=== PATIENT | male | born 1950 | race Caucasian/White ===

== ENCOUNTER 2017-03-23 04:27 | Inpatient (IN) | payer OTHER, MEDICARE ==
[~2017-03-23] VITALS: Ht 180 cm; Wt 134.7 kg
[2017-03-23 05:30] VITALS: BP 162/82
[2017-03-23] MEDS ORDERED: ALBUTEROL2.5 MG/31 INH (05:50)
[2017-03-23] MEDS ORDERED: AMIODARONE HCL100 MG PO (05:51)
[2017-03-23] MEDS ORDERED: TUMS PO (05:51)
[2017-03-23] MEDS ORDERED: LEXAPRO20 MG PO (05:52)
[2017-03-23] MEDS ORDERED: IRON325 PO (05:53)
[2017-03-23] MEDS ORDERED: GABAPENTIN 100100 MG (05:54)
[2017-03-23] MEDS ORDERED: NOVOLOG100 UNIT/1 (05:55)
[2017-03-23] MEDS ORDERED: LANTUS100 UNIT/M (05:56)
[2017-03-23] MEDS ORDERED: LACTULOSE20 GM/30 M (05:57)
[2017-03-23] MEDS ORDERED: LAMICTAL (GREE1 EACH (05:58)
[2017-03-23] MEDS ORDERED: LISINOPRIL20 MG (05:58)
[2017-03-23] MEDS ORDERED: ATIVAN0.5 MG (05:59)
[2017-03-23] MEDS ORDERED: MILK OF MA2400 MG/10 (06:00)
[2017-03-23] MEDS ORDERED: ZYPREXA5 MG (06:01)
[2017-03-23] MEDS ORDERED: PRILOSEC 20 MG20 MG (06:02)
[2017-03-23] MEDS ORDERED: OXCARBAZEPINE150 MG (06:05)
[2017-03-23] MEDS ORDERED: OXYBUTYNIN 5 MG5 M2 PO (06:05)
[2017-03-23] MEDS ORDERED: PRAZOSIN 1 MG CA1 M1 PO (06:06)
[2017-03-23] MEDS ORDERED: MIRALAX17 GM PO (06:06)
[2017-03-23] MEDS ORDERED: UBIQUINOL100 MG PO (06:07)
[2017-03-23] MEDS ORDERED: DEPAKENE250 MG PO (06:07)
[2017-03-23] MEDS ORDERED: COUMADIN 1MG TAB1 M1 (06:09)
[2017-03-23] MEDS ORDERED: AMBIEN 5 MG TABL5 M1 PO (06:09)
[2017-03-23] MEDS ORDERED: LOPRESSOR25 (06:10)
[2017-03-23] MEDS ORDERED: MICONAZOLE5 GM (06:11)
[2017-03-23] MEDS ORDERED: CENTRUM SILVER1 EAC4 PO (06:12)
[2017-03-23] MEDS ORDERED: ARTIFICIAL TEA1 EACH OP (06:14)
[2017-03-23 07:49] LABS: HEMATOCRIT 40.4 % (42.0-52.0); HEMOGLOBIN 13.5 gm/dL (14.0-18.0)
[2017-03-23 09:34] VITALS: BP 153/55
[2017-03-23 10:50] LABS: ABSOLUTE NEUTROPHILS 8.5 thou/uL (1.4-8.2); BASOPHILS 0.6 % (0.0-2.0); HEMATOCRIT 40.1 % (42.0-52.0); HEMOGLOBIN 13.4 gm/dL (14.0-18.0); LYMPHOCYTES 20.5 % (24.0-44.0); MCH 31.9 pg (26.0-34.0); MCHC 33.4 g/dL (28.0-37.0); MCV 95.5 fL (80.0-100.0); MONOCYTES 11.6 % (1.0-8.0); PLATELET COUNT 209 thou/uL (150-400); POLYS 65.3 % (36.0-66.0); RDW 14.4 % (10.5-14.5)
[2017-03-23 11:02] LABS: CALCIUM 8.8 mg/dL (8.5-10.1); CREATININE 1.1 mg/dL (0.7-1.3); POTASSIUM 3.5 mmol/L (3.5-5.1)
[2017-03-23 16:32] VITALS: BP 142/56
[2017-03-23 20:58] VITALS: BP 143/85
[2017-03-23 23:51] VITALS: BP 139/77
[2017-03-24 05:20] VITALS: BP 158/78
[2017-03-24 05:52] LABS: ABSOLUTE NEUTROPHILS 5.6 thou/uL (1.4-8.2); BASOPHILS 0.4 % (0.0-2.0); HEMATOCRIT 38.3 % (42.0-52.0); HEMOGLOBIN 13.1 gm/dL (14.0-18.0); LYMPHOCYTES 25.1 % (24.0-44.0); MCH 32.5 pg (26.0-34.0); MCHC 34.1 g/dL (28.0-37.0); MCV 95.2 fL (80.0-100.0); MONOCYTES 7.9 % (1.0-8.0); PLATELET COUNT 204 thou/uL (150-400); POLYS 61.6 % (36.0-66.0); RBC 4.02 mil/uL (4.50-6.00); RDW 14.5 % (10.5-14.5); WBC 9.1 thou/uL (4.0-11.0)
[2017-03-24 06:01] LABS: INR 2.4; PROTIME 24.4 Seconds (9.3-11.4)
[2017-03-24 06:12] LABS: CREATININE 0.7 mg/dL (0.7-1.3); POTASSIUM 3.3 mmol/L (3.5-5.1)
[2017-03-24 08:00] VITALS: BP 138/66
[2017-03-24 16:00] VITALS: BP 172/89
[2017-03-24 19:57] VITALS: BP 149/76
[2017-03-25 04:10] VITALS: BP 149/74
[2017-03-25 08:35] VITALS: BP 136/49
[2017-03-25 09:15] LABS: ABSOLUTE NEUTROPHILS 7.6 thou/uL (1.4-8.2); BASOPHILS 0.2 % (0.0-2.0); EOSINOPHILS 1.8 % (0.0-3.0); HEMOGLOBIN 12.8 gm/dL (14.0-18.0); MCH 32.3 pg (26.0-34.0); MCHC 33.7 g/dL (28.0-37.0); MCV 95.6 fL (80.0-100.0); MONOCYTES 8.4 % (1.0-8.0); PLATELET COUNT 185 thou/uL (150-400); POLYS 71.6 % (36.0-66.0); RBC 3.97 mil/uL (4.50-6.00); RDW 14.2 % (10.5-14.5); WBC 10.7 thou/uL (4.0-11.0)
[2017-03-25 09:26] LABS: CALCIUM 7.7 mg/dL (8.5-10.1); CREATININE 0.5 mg/dL (0.7-1.3); POTASSIUM 3.2 mmol/L (3.5-5.1)
[2017-03-25 09:32] VITALS: BP 136/49
== END 2017-03-25 15:26 | disposition home or self-care (01) | DRG 378 ==
LOC: 3N 04:27 → 4S 05:42
PROVIDERS: Family Medicine; Nurse Practitioner Acute Care
DX: K92.2 Gastrointestinal hemorrhage, unspecified (principal); K56.7 Ileus, unspecified; Z68.41 Body mass index [BMI] 40.0-44.9, adult; E11.9 Type 2 diabetes mellitus without complications; I10 Essential (primary) hypertension; E66.9 Obesity, unspecified; F41.9 Anxiety disorder, unspecified; K21.9 Gastro-esophageal reflux disease without esophagitis; E78.5 Hyperlipidemia, unspecified; K59.00 Constipation, unspecified; D64.9 Anemia, unspecified; Z88.0 Allergy status to penicillin; Z74.01 Bed confinement status; Z79.4 Long term (current) use of insulin; Z79.899 Other long term (current) drug therapy; Z89.612 Acquired absence of left leg above knee
CPT/HCPCS: 10102